=== PATIENT | female | born 1975 | race Caucasian/White ===

== ENCOUNTER → 2017-01-07 | Day surgery (SDC) | payer OTHER ==
[~2017-01-07] MED LIST: CLARITIN10 MG PO; DIAZEPAM 5MG TAB5 MG PO; FOLIC ACID1 MG PO; KLOR-CON M2020 MEQ PO; LEVAQUIN750 MG PO; LIPITOR40 MG PO; LORTAB 7.5-3251 EACH PO; METRONIDAZOLE500 MG PO; NIFEREX150 MG PO; NORVASC10 MG PO; OMEPRAZOLE40 MG PO; PRINIVIL10 MG PO; RHEUMATREX2.5 MG PO; SYMBICORT 1601 PUFFS INH; SYNTHROID75 MCG PO; VENTOLIN HFA IN18 GM INH; WELLBUTRIN XL150 MG PO; ZETIA10 MG PO; ZOFRAN4 MG PO
== END | disposition home or self-care (01) ==
LOC: FAS 09:41
DX: K52.9 Noninfective gastroenteritis and colitis, unspecified (principal); K44.9 Diaphragmatic hernia without obstruction or gangrene; K21.9 Gastro-esophageal reflux disease without esophagitis; I10 Essential (primary) hypertension; E03.9 Hypothyroidism, unspecified; E78.00 Pure hypercholesterolemia, unspecified; J42 Unspecified chronic bronchitis; F41.9 Anxiety disorder, unspecified; F17.210 Nicotine dependence, cigarettes, uncomplicated; Z90.710 Acquired absence of both cervix and uterus; Z88.6 Allergy status to analgesic agent; Z87.440 Personal history of urinary (tract) infections; Z85.51 Personal history of malignant neoplasm of bladder; Z79.899 Other long term (current) drug therapy; Z98.890 Other specified postprocedural states
CPT/HCPCS: 88305; J2704

== ENCOUNTER 2017-03-20 13:39 | Emergency (ER) | payer OTHER ==
[2017-03-20 16:30] LABS: BILIRUBIN NEGATIVE (NEGATIVE); BLOOD NEGATIVE Ery/uL (NEGATIVE); CLARITY CLEAR (CLEAR); COLOR YELLOW (YELLOW); GLUCOSE (U) NORMAL (NORMAL); KETONE (U) NEGATIVE (NEGATIVE); LEUKOCYTES TRACE Leu/uL (NEGATIVE); NITRITE NEGATIVE (NEGATIVE); PROTEIN NEGATIVE (NEGATIVE); UROBILINOGEN 0.2 mg/dL (0.2-1.0)
[2017-03-20 16:33] LABS: BASOPHIL 0.4 % (0-2); EOSINOPHIL 3.3 % (0-5); HCT 37.7 % (37.0-47.0); HGB 12.3 g/dl (12.5-16.0); LYMPHOCYTE 35.3 % (15-48); MCH 28.7 pg (25.0-31.0); MCHC 32.6 g/dL (32.0-36.0); MCV 87.9 fL (78.0-100.0); MONOCYTE 7.9 % (0-12); MPV 8.9 fL (6.0-9.5); NEUTROPHIL 53.1 % (41-80); PLT 415 K/uL (150-400); RBC 4.29 M/uL (4.20-5.40); RDW 17.8 % (11.5-14.0); WBC 6.7 K/uL (4.0-10.5)
[2017-03-20 16:35] LABS: ALBUMIN 4.4 g/dL (3.5-5.0); BILIRUBIN - TOTAL 0.2 mg/dL (0.1-1.0); CREATININE 0.9 mg/dL (0.5-1.0); GLOBULIN (CALCULATION) 3.2 g/dL (2.2-4.2); POTASSIUM 3.6 mmol/L (3.5-5.1); TOTAL PROTEIN 7.6 g/dL (6.4-8.3)
[2017-03-20 16:43] LABS: BACTERIA 1+
== END 2017-03-20 17:38 | disposition home or self-care (01) ==
LOC: FER 13:39
PROVIDERS: Emergency Medicine
DX: R10.9 Unspecified abdominal pain (principal); R19.7 Diarrhea, unspecified; R11.2 Nausea with vomiting, unspecified; I10 Essential (primary) hypertension; E03.9 Hypothyroidism, unspecified; E78.5 Hyperlipidemia, unspecified; J44.9 Chronic obstructive pulmonary disease, unspecified; F17.200 Nicotine dependence, unspecified, uncomplicated; Z85.51 Personal history of malignant neoplasm of bladder; Z84.1 Family history of disorders of kidney and ureter; Z83.79 Family history of other diseases of the digestive system; Z79.51 Long term (current) use of inhaled steroids; Z79.899 Other long term (current) drug therapy
CPT/HCPCS: 36415; 76705; 80053; 81001; 85025

== ENCOUNTER 2020-11-17 17:49 | Emergency (ER) | payer OTHER ==
[~2020-11-17 17:49] MED LIST changes: +AMLODIPINE BESY10 MG PO; +AZITHROMYCIN250 MG PO; +BREO ELLIPTA INH 200 IN; +BUSPIRONE HCL15 M1 PO; +BUSPIRONE HCL15 MG PO; +CETIRIZINE HCL10 MG PO; +CLEOCIN300 MG PO; +CYCLOBENZAPRINE10 MG PO; +DOXYCYCLINE HY100 MG PO; +DUONEB 2.5-0.5M1 AMP INH; +HYDROCODON-ACE1 EAC2 PO; +K-DUR20 MEQ PO; +LEFLUNOMIDE20 MG PO; +LEVAQUIN500 MG PO; +LEVOTHYROXINE75 MC1 PO; +LISINOPRIL 10MG10 MG PO; +MACROBID100 MG PO; +MEDROL 4MG DOSEP4 MG PO; +MONTELUKAST SOD10 MG PO; +PERCOCET 5-3251 EACH PO; +PREDNISONE 20MG20 MG PO; +TIZANIDINE HCL4 M1 PO; +TIZANIDINE HCL4 MG PO; +TYLENOL #31 EACH PO; +VOLTAREN **OUT75 MG PO; +ZOFRAN ODT4 MG PO/SL; +ZOFRAN8 MG PO
[2020-11-17 20:03] LABS: BASOPHIL 0.4 % (0-2); EOSINOPHIL 0.6 % (0-5); HCT 43.5 % (37.0-47.0); HGB 14.4 g/dl (12.5-16.0); LYMPHOCYTE 18.8 % (15-48); MCH 30.1 pg (25.0-31.0); MCHC 33.1 g/dL (32.0-36.0); MONOCYTE 7.3 % (0-12); MPV 9.4 fL (6.0-9.5); NEUTROPHIL 72.7 % (41-80); NRBC 0; PLT 425 K/uL (150-400); RBC 4.78 M/uL (4.20-5.40); RDW 13.3 % (11.5-14.0); WBC 10.4 K/uL (4.0-10.5)
[2020-11-17 20:32] LABS: ALBUMIN 3.6 g/dL (3.4-5.0); BILIRUBIN - TOTAL 0.5 mg/dL (0.2-1.0); BUN/CREAT RATIO (CALC) 6.5 RATIO; CREATININE 1.07 mg/dL (0.51-0.95); GLOBULIN (CALCULATION) 4.6 g/dL; POTASSIUM 4.1 mmol/L (3.5-5.1); TOTAL PROTEIN 8.2 g/dL (6.4-8.2)
[2020-11-17 20:37] LABS: BILIRUBIN 2+ mg/dL (NEGATIVE); BLOOD 2+ Ery/uL (NEGATIVE); CLARITY CLEAR (CLEAR); COLOR YELLOW (YELLOW); GLUCOSE (U) NORMAL (NORMAL); LEUKOCYTES NEGATIVE Leu/uL (NEGATIVE); NITRITE NEGATIVE (NEGATIVE); PROTEIN NEGATIVE (NEGATIVE); SPECIFIC GRAVITY >=1.030 (1.001-1.030); UROBILINOGEN 0.2 mg/dL (0.2-1.0); pH 5.5 (5.0-9.0)
[2020-11-17 20:44] LABS: URINARY WBC RARE
[2020-11-17 20:45] LABS: BACTERIA TRACE
[2020-11-17 21:07] LABS: CORONAVIRUS 2019 SARS-COV-2 NEGATIVE (NEGATIVE); INFLUENZA A NAA NEGATIVE (NEGATIVE)
[2020-11-17] MEDS ORDERED: COMPAZINE10 MG PO (23:42)
== END 2020-11-17 23:54 | disposition home or self-care (01) ==
LOC: FER 17:49
PROVIDERS: Emergency Medicine
DX: R11.2 Nausea with vomiting, unspecified (principal); R19.7 Diarrhea, unspecified; E86.0 Dehydration; R10.9 Unspecified abdominal pain; I10 Essential (primary) hypertension; Z87.39 Personal history of other diseases of the musculoskeletal system and connective tissue; Z88.6 Allergy status to analgesic agent; Z20.822 Contact with and (suspected) exposure to COVID-19
CPT/HCPCS: 36415; 80053; 81001; 83690; 85025; J0780; J1200; J2405; J7030; Q9967; U0002

== ENCOUNTER 2020-11-30 13:33 | Emergency (ER) | payer OTHER ==
[~2020-11-30 13:33] MED LIST changes: +COMPAZINE10 MG PO
[2020-11-30 16:37] LABS: BASOPHIL 0.6 % (0-2); EOSINOPHIL 0.6 % (0-5); HCT 39.7 % (37.0-47.0); HGB 13.3 g/dl (12.5-16.0); LYMPHOCYTE 22.4 % (15-48); MCH 30.8 pg (25.0-31.0); MCHC 33.5 g/dL (32.0-36.0); MCV 91.9 fL (78.0-100.0); MONOCYTE 7.9 % (0-12); MPV 9.8 fL (6.0-9.5); NEUTROPHIL 68.2 % (41-80); NRBC 0; PLT 391 K/uL (150-400); RBC 4.32 M/uL (4.20-5.40); RDW 14.1 % (11.5-14.0); WBC 10.1 K/uL (4.0-10.5)
[2020-11-30 17:12] LABS: BILIRUBIN NEGATIVE (NEGATIVE); BLOOD 1+ Ery/uL (NEGATIVE); CLARITY CLEAR (CLEAR); COLOR YELLOW (YELLOW); GLUCOSE (U) NORMAL (NORMAL); LEUKOCYTES 1+ Leu/uL (NEGATIVE); NITRITE NEGATIVE (NEGATIVE); PROTEIN NEGATIVE (NEGATIVE); UROBILINOGEN 0.2 mg/dL (0.2-1.0)
[2020-11-30 17:13] LABS: AMPHETAMINES NEGATIVE (NEGATIVE); BARBITURATES NEGATIVE (NEGATIVE); ECSTASY (MDMA) NEGATIVE (NEGATIVE); MARIJUANA (THC) NEGATIVE (NEGATIVE); METHADONE NEGATIVE (NEGATIVE); OPIATES NEGATIVE (NEGATIVE); OXYCODONE NEGATIVE (NEGATIVE)
[2020-11-30 17:17] LABS: BACTERIA TRACE; SQUAMOUS EPITHELIAL CELLS RARE; URINARY WBC RARE
[2020-11-30 17:46] LABS: ALBUMIN 3.4 g/dL (3.4-5.0); BILIRUBIN - TOTAL 0.4 mg/dL (0.2-1.0); BUN/CREAT RATIO (CALC) 7.3 RATIO; CREATININE 1.92 mg/dL (0.51-0.95); POTASSIUM 3.3 mmol/L (3.5-5.1); TOTAL PROTEIN 7.4 g/dL (6.4-8.2)
[2020-12-01] MEDS ORDERED: NORCO 5-325 TA1 EACH PO (16:31)
== END 2020-11-30 19:15 | disposition home or self-care (01) ==
LOC: FER 13:33
PROVIDERS: Emergency Medicine
DX: S90.111A Contusion of right great toe without damage to nail, initial encounter (principal); R42 Dizziness and giddiness; N17.9 Acute kidney failure, unspecified; R07.9 Chest pain, unspecified; R20.0 Anesthesia of skin; M54.6 Pain in thoracic spine; I10 Essential (primary) hypertension; J44.9 Chronic obstructive pulmonary disease, unspecified; M06.9 Rheumatoid arthritis, unspecified; Z79.891 Long term (current) use of opiate analgesic; Z87.39 Personal history of other diseases of the musculoskeletal system and connective tissue; Z87.891 Personal history of nicotine dependence; Z88.6 Allergy status to analgesic agent; W19.XXXA Unspecified fall, initial encounter
CPT/HCPCS: 36415; 71045; 73630; 80053; 80305; 81001; 84484; 85025; 85379; 87088; 93005

== ENCOUNTER 2020-12-01 12:04 | Emergency (ER) | payer OTHER ==
[2020-12-01 13:01] LABS: BASOPHIL 0.6 % (0-2); HCT 38.9 % (37.0-47.0); HGB 12.9 g/dl (12.5-16.0); LYMPHOCYTE 26.7 % (15-48); MCH 30.3 pg (25.0-31.0); MCHC 33.2 g/dL (32.0-36.0); MCV 91.3 fL (78.0-100.0); MONOCYTE 7.8 % (0-12); NEUTROPHIL 63.6 % (41-80); NRBC 0; PLT 423 K/uL (150-400); RBC 4.26 M/uL (4.20-5.40); RDW 13.7 % (11.5-14.0); WBC 8.8 K/uL (4.0-10.5)
[2020-12-01 13:06] LABS: INR 0.94 (0.9-1.2); PROTHROMBIN TIME 11.9 SECONDS (11.4-13.6); PTT 26.7 SECONDS (22.2-34.7)
[2020-12-01 13:13] LABS: ALBUMIN 3.6 g/dL (3.4-5.0); BILIRUBIN - TOTAL 0.2 mg/dL (0.2-1.0); BUN/CREAT RATIO (CALC) 8.2 RATIO; CREATININE 1.7 mg/dL (0.51-0.95); GLOBULIN (CALCULATION) 4.7 g/dL; POTASSIUM 3.3 mmol/L (3.5-5.1); TOTAL PROTEIN 8.3 g/dL (6.4-8.2)
[2020-12-01 13:21] LABS: PRO-BNP 100 pg/mL (<125)
[2020-12-01 15:56] LABS: BUN/CREAT RATIO (CALC) 8.4 RATIO; CREATININE 1.43 mg/dL (0.51-0.95); POTASSIUM 3.9 mmol/L (3.5-5.1)
[2020-12-01] MEDS ORDERED: NORCO 5-325 TA1 EACH PO (16:31)
== END 2020-12-01 17:27 | disposition home or self-care (01) ==
LOC: FER 12:04
PROVIDERS: Emergency Medicine
DX: R07.89 Other chest pain (principal); E86.0 Dehydration; J44.9 Chronic obstructive pulmonary disease, unspecified; G89.29 Other chronic pain; Z88.6 Allergy status to analgesic agent; Z79.891 Long term (current) use of opiate analgesic
CPT/HCPCS: 36415; 80048; 80053; 83605; 83880; 84145; 84484; 85025; 85610; 85730; 93005; J1170; J2405; J7030

== ENCOUNTER 2021-06-27 02:44 | Emergency (ER) | payer OTHER ==
[~2021-06-27 02:44] MED LIST changes: +NORCO 5-325 TA1 EACH PO
[2021-06-27 03:25] LABS: BILIRUBIN NEGATIVE (NEGATIVE); BLOOD NEGATIVE Ery/uL (NEGATIVE); CLARITY CLEAR (CLEAR); COLOR YELLOW (YELLOW); GLUCOSE (U) NORMAL (NORMAL); LEUKOCYTES NEGATIVE Leu/uL (NEGATIVE); NITRITE NEGATIVE (NEGATIVE); PROTEIN NEGATIVE (NEGATIVE); SPECIFIC GRAVITY 1.025 (1.001-1.030); UROBILINOGEN 0.2 mg/dL (0.2-1.0); pH 5.5 (5.0-9.0)
[2021-06-27 03:39] LABS: BASOPHIL 0.6 % (0-2); EOSINOPHIL 1.8 % (0-5); HCT 39.2 % (37.0-47.0); HGB 12.6 g/dl (12.5-16.0); LYMPHOCYTE 20.3 % (15-48); MCH 29.6 pg (25.0-31.0); MCHC 32.1 g/dL (32.0-36.0); MCV 92.2 fL (78.0-100.0); MONOCYTE 6.9 % (0-12); NEUTROPHIL 69.7 % (41-80); NRBC 0; PLT 285 K/uL (150-400); RBC 4.25 M/uL (4.20-5.40); RDW 15.5 % (11.5-14.0); WBC 8.2 K/uL (4.0-10.5)
[2021-06-27 03:59] LABS: BUN/CREAT RATIO (CALC) 8.8 RATIO; CREATININE 0.68 mg/dL (0.51-0.95); POTASSIUM 4.4 mmol/L (3.5-5.1)
[2021-06-27] MEDS ORDERED: ONDANSETRON ODT4 MG PO (05:46)
[2021-06-27] MEDS ORDERED: CYCLOBENZAPRINE10 MG PO (05:47)
[2021-06-27] MEDS ORDERED: NORCO 5-325 TA1 EACH PO (05:48)
== END 2021-06-27 06:00 | disposition home or self-care (01) ==
LOC: FER 02:44
PROVIDERS: Internal Medicine
DX: G89.29 Other chronic pain (principal); M54.5 Low back pain; R11.2 Nausea with vomiting, unspecified; I10 Essential (primary) hypertension; J44.9 Chronic obstructive pulmonary disease, unspecified; F17.210 Nicotine dependence, cigarettes, uncomplicated; Z88.6 Allergy status to analgesic agent
CPT/HCPCS: 36415; 80048; 81003; 85025; 96372; J0696; J1170; J2405

== ENCOUNTER 2021-06-28 09:46 | Emergency (ER) | payer OTHER ==
[~2021-06-28 09:46] MED LIST changes: +ONDANSETRON ODT4 MG PO
== END 2021-06-28 12:40 | disposition home or self-care (01) ==
LOC: FER 09:46
DX: S22.088A Other fracture of T11-T12 vertebra, initial encounter for closed fracture (principal); S32.028A Other fracture of second lumbar vertebra, initial encounter for closed fracture; Z88.6 Allergy status to analgesic agent; X58.XXXA Exposure to other specified factors, initial encounter
CPT/HCPCS: J1170

== ENCOUNTER 2021-07-18 03:28 | Emergency (ER) | payer OTHER ==
[2021-07-18 04:27] LABS: BILIRUBIN NEGATIVE (NEGATIVE); BLOOD NEGATIVE Ery/uL (NEGATIVE); CLARITY CLEAR (CLEAR); COLOR YELLOW (YELLOW); GLUCOSE (U) NORMAL (NORMAL); LEUKOCYTES 1+ Leu/uL (NEGATIVE); NITRITE NEGATIVE (NEGATIVE); PROTEIN NEGATIVE (NEGATIVE); SPECIFIC GRAVITY 1.015 (1.001-1.030); UROBILINOGEN 0.2 mg/dL (0.2-1.0); pH 6.5 (5.0-9.0)
[2021-07-18 04:42] LABS: URINARY WBC RARE
[2021-07-18 04:50] LABS: BASOPHIL 0.6 % (0-2); EOSINOPHIL 1.5 % (0-5); HCT 42.1 % (37.0-47.0); HGB 13.6 g/dl (12.5-16.0); LYMPHOCYTE 20.8 % (15-48); MCH 29.2 pg (25.0-31.0); MCHC 32.3 g/dL (32.0-36.0); MCV 90.3 fL (78.0-100.0); MONOCYTE 7.9 % (0-12); MPV 9.3 fL (6.0-9.5); NEUTROPHIL 68.5 % (41-80); NRBC 0; PLT 325 K/uL (150-400); RBC 4.66 M/uL (4.20-5.40); RDW 14.4 % (11.5-14.0); WBC 8.8 K/uL (4.0-10.5)
[2021-07-18 04:53] LABS: ALBUMIN 3.7 g/dL (3.4-5.0); BILIRUBIN - TOTAL 0.2 mg/dL (0.2-1.0); BUN/CREAT RATIO (CALC) 10.3 RATIO; CREATININE 0.78 mg/dL (0.51-0.95); GLOBULIN (CALCULATION) 4.4 g/dL; POTASSIUM 4.1 mmol/L (3.5-5.1); TOTAL PROTEIN 8.1 g/dL (6.4-8.2)
[2021-07-18] MEDS ORDERED: BACTRIM DS TAB1 EACH PO (07:16)
[2021-07-18] MEDS ORDERED: CYCLOBENZAPRINE10 MG PO (07:16)
[2021-07-19] MEDS ORDERED: CALCITONIN-SAL3.7 ML (09:43)
[2021-07-19] MEDS ORDERED: PREDNISONE 20MG20 MG PO (10:00)
== END 2021-07-18 07:40 | disposition home or self-care (01) ==
LOC: FER 03:28
PROVIDERS: Emergency Medicine Emergency Medical Services
DX: R10.31 Right lower quadrant pain (principal); R30.0 Dysuria; K59.00 Constipation, unspecified; S22.088D Other fracture of T11-T12 vertebra, subsequent encounter for fracture with routine healing; S32.038D Other fracture of third lumbar vertebra, subsequent encounter for fracture with routine healing; J44.9 Chronic obstructive pulmonary disease, unspecified; F17.210 Nicotine dependence, cigarettes, uncomplicated; Z88.6 Allergy status to analgesic agent
CPT/HCPCS: 36415; 80053; 81001; 85025; J0696; J1170; J1885; J2405; J7030

== ENCOUNTER 2021-07-19 05:21 | Emergency (ER) | payer OTHER ==
[~2021-07-19] VITALS: Ht 165.1 cm; Wt 90.7 kg
[~2021-07-19 05:21] MED LIST changes: +BACTRIM DS TAB1 EACH PO
[2021-07-19 06:38] LABS: BASOPHIL 0.4 % (0-2); EOSINOPHIL 1.4 % (0-5); HCT 42.8 % (37.0-47.0); HGB 13.4 g/dl (12.5-16.0); LYMPHOCYTE 18.8 % (15-48); MCH 28.7 pg (25.0-31.0); MCHC 31.3 g/dL (32.0-36.0); MCV 91.6 fL (78.0-100.0); MONOCYTE 7.6 % (0-12); MPV 8.5 fL (6.0-9.5); NEUTROPHIL 71.2 % (41-80); NRBC 0; PLT 264 K/uL (150-400); RBC 4.67 M/uL (4.20-5.40); RDW 14.6 % (11.5-14.0); WBC 9.8 K/uL (4.0-10.5)
[2021-07-19 06:55] LABS: BUN/CREAT RATIO (CALC) 9.1 RATIO; C-REACTIVE PROTEIN 1.6 mg/dL (<=0.90); CREATININE 0.77 mg/dL (0.51-0.95); POTASSIUM 4.2 mmol/L (3.5-5.1)
[2021-07-19 07:04] LABS: BILIRUBIN NEGATIVE (NEGATIVE); BLOOD NEGATIVE Ery/uL (NEGATIVE); CLARITY CLEAR (CLEAR); COLOR YELLOW (YELLOW); GLUCOSE (U) NORMAL (NORMAL); LEUKOCYTES NEGATIVE Leu/uL (NEGATIVE); NITRITE NEGATIVE (NEGATIVE); PROTEIN NEGATIVE (NEGATIVE); UROBILINOGEN 0.2 mg/dL (0.2-1.0)
[2021-07-19 08:18] LABS: AMPHETAMINES NEGATIVE (NEGATIVE); BARBITURATES NEGATIVE (NEGATIVE); ECSTASY (MDMA) NEGATIVE (NEGATIVE); MARIJUANA (THC) NEGATIVE (NEGATIVE); METHADONE NEGATIVE (NEGATIVE); OPIATES NEGATIVE (NEGATIVE); OXYCODONE NEGATIVE (NEGATIVE)
[2021-07-19] MEDS ORDERED: CALCITONIN-SAL3.7 ML (09:43)
[2021-07-19] MEDS ORDERED: PREDNISONE 20MG20 MG PO (10:00)
[2021-07-22 22:10] LABS: CHLAMYDIA TRACHOMATIS, NAA Negative (Negative); NEISSERIA GONORRHOEAE, NAA Negative (Negative)
== END 2021-07-19 10:28 | disposition home or self-care (01) ==
LOC: FER 05:21
PROVIDERS: Emergency Medicine Emergency Medical Services
DX: S32.019A Unspecified fracture of first lumbar vertebra, initial encounter for closed fracture (principal); S22.089A Unspecified fracture of T11-T12 vertebra, initial encounter for closed fracture; R10.31 Right lower quadrant pain; R10.813 Right lower quadrant abdominal tenderness; J44.9 Chronic obstructive pulmonary disease, unspecified; I10 Essential (primary) hypertension; E78.5 Hyperlipidemia, unspecified; F17.210 Nicotine dependence, cigarettes, uncomplicated; K21.9 Gastro-esophageal reflux disease without esophagitis; Z85.51 Personal history of malignant neoplasm of bladder; Z90.710 Acquired absence of both cervix and uterus; Z88.6 Allergy status to analgesic agent; Z88.0 Allergy status to penicillin; X58.XXXA Exposure to other specified factors, initial encounter
CPT/HCPCS: 36415; 72146; 72148; 80048; 80305; 81003; 85025; 86140; 87088; 87210; 87491; 87591; J1170; J2405; J2930

== ENCOUNTER 2021-10-19 14:32 | Emergency (ER) | payer OTHER ==
[~2021-10-19 14:32] MED LIST changes: +CALCITONIN-SAL3.7 ML
[2021-10-19 15:06] LABS: BASOPHIL 0.4 % (0-2); EOSINOPHIL 1.9 % (0-5); HCT 42.4 % (37.0-47.0); HGB 13.4 g/dl (12.5-16.0); LYMPHOCYTE 23.1 % (15-48); MCH 28.5 pg (25.0-31.0); MCHC 31.6 g/dL (32.0-36.0); MCV 90.2 fL (78.0-100.0); MONOCYTE 6.3 % (0-12); MPV 8.8 fL (6.0-9.5); NEUTROPHIL 67.5 % (41-80); NRBC 0; PLT 316 K/uL (150-400); RDW 16.2 % (11.5-14.0); WBC 9.2 K/uL (4.0-10.5)
[2021-10-19 16:07] LABS: ALBUMIN 3.7 g/dL (3.4-5.0); BILIRUBIN - TOTAL 0.2 mg/dL (0.2-1.0); BUN/CREAT RATIO (CALC) 6.8 RATIO; CREATININE 0.73 mg/dL (0.51-0.95); GLOBULIN (CALCULATION) 4.3 g/dL; POTASSIUM 3.8 mmol/L (3.5-5.1)
[2021-10-19] MEDS ORDERED: VENTOLIN HFA IN18 GM INH (18:57)
[2021-10-19] MEDS ORDERED: MUCINEX DM ER1 EACH PO (18:57)
[2021-10-19 19:48] LABS: CORONAVIRUS 2019 SARS-COV-2 NEGATIVE (NEGATIVE); INFLUENZA A NAA NEGATIVE (NEGATIVE)
[2021-10-19] MEDS ORDERED: G TUSSIN AC LI118 ML PO (20:04)
== END 2021-10-19 20:13 | disposition home or self-care (01) ==
LOC: FER 14:32
PROVIDERS: Internal Medicine; Physician Assistant
DX: J20.9 Acute bronchitis, unspecified (principal); R07.89 Other chest pain; I10 Essential (primary) hypertension; J44.9 Chronic obstructive pulmonary disease, unspecified; F17.210 Nicotine dependence, cigarettes, uncomplicated; E66.9 Obesity, unspecified; Z20.822 Contact with and (suspected) exposure to COVID-19; Z88.6 Allergy status to analgesic agent
CPT/HCPCS: 36415; 71045; 71275; 80053; 84484; 85025; 93005; 94640; 94664; J1100; J1170; J1885; U0002

== ENCOUNTER 2022-01-04 12:13 | Emergency (ER) | payer OTHER ==
[~2022-01-04 12:13] MED LIST changes: +G TUSSIN AC LI118 ML PO; +MUCINEX DM ER1 EACH PO
[2022-01-04 13:01] LABS: BASOPHIL 0.4 % (0-2); EOSINOPHIL 2.1 % (0-5); HCT 40.9 % (37.0-47.0); LYMPHOCYTE 29.2 % (15-48); MCH 29.1 pg (25.0-31.0); MCHC 31.8 g/dL (32.0-36.0); MCV 91.7 fL (78.0-100.0); MONOCYTE 8.1 % (0-12); MPV 9.2 fL (6.0-9.5); NEUTROPHIL 59.8 % (41-80); NRBC 0; PLT 282 K/uL (150-400); RBC 4.46 M/uL (4.20-5.40); RDW 14.4 % (11.5-14.0); WBC 6.8 K/uL (4.0-10.5)
[2022-01-04 13:26] LABS: ALBUMIN 3.2 g/dL (3.4-5.0); BILIRUBIN - TOTAL 0.2 mg/dL (0.2-1.0); BUN/CREAT RATIO (CALC) 4.2 RATIO; CREATININE 0.72 mg/dL (0.51-0.95); GLOBULIN (CALCULATION) 4.2 g/dL; POTASSIUM 3.5 mmol/L (3.5-5.1); TOTAL PROTEIN 7.4 g/dL (6.4-8.2)
== END 2022-01-04 16:20 | disposition home or self-care (01) ==
LOC: FER 12:13
PROVIDERS: Emergency Medicine
DX: R07.89 Other chest pain (principal); I10 Essential (primary) hypertension; J44.9 Chronic obstructive pulmonary disease, unspecified; F17.210 Nicotine dependence, cigarettes, uncomplicated
CPT/HCPCS: 36415; 71045; 71275; 80053; 84484; 85025; 85379; 93005; J1885; J2270; J7030; Q9967